=== PATIENT | female | born 1985 | race Caucasian/White ===

== ENCOUNTER 2017-10-27 10:41 | Day surgery (SDC) | payer OTHER ==
[2017-10-27] MEDS ORDERED: FENTAnyl 50 MCG/ML VIAL (13:06)
[2017-10-27] MEDS ORDERED: ROPIVACAINE 0.5 % 30 ML VIAL (13:10)
[2017-10-27] MEDS ORDERED: CEFAZOLIN 1 GM INJ (13:27)
[2017-10-27] MEDS ORDERED: ROCURONIUM 50 MG INJ (13:27)
[2017-10-27] MEDS ORDERED: LIDOCAINE 100 MG SYRINGE (13:27)
[2017-10-27] MEDS ORDERED: PROPOFOL 20 ML (13:27)
[2017-10-27] MEDS ORDERED: SUCCINYLCHOLINE CHLORIDE 100 MG/5 ML SYG IV (13:27)
[2017-10-27] MEDS ORDERED: SUGAMMADEX SODIUM 200 MG/2 ML VIAL IV (13:27)
[2017-10-27] MEDS: BUPIVACAINE 0.25%/EPI (SDV) 30 ML INJ INJ (13:35)
[2017-10-27] MEDS ORDERED: FENTAnyl 50 MCG/ML VIAL IV (14:00)
[2017-10-27] MEDS ORDERED: METOCLOPRAMIDE 10 MG INJ IV (14:00)
[2017-10-27] MEDS ORDERED: DIPHENHYDRAMINE 50 MG INJ IV (14:00)
[2017-10-27] MEDS ORDERED: HYDROmorphONE (0.2 MG/ML) 10ML SYG IV ×3 (14:00)
[2017-10-27] MEDS: MEPERIDINE 25 MG INJ IV (14:33)
[2017-10-27] MEDS: ONDANSETRON 4 MG INJ IV (14:39)
[2017-10-27] MEDS: FENTAnyl 50 MCG/ML VIAL IV ×2 (15:14→15:23)
[2017-10-27] MEDS: OXYCODONE/ACETAMINOPHEN (5/325) TAB PO (17:07)
[2017-10-27] MEDS ORDERED: OXYCODONE/ACETAMINOPHEN (10/325) TAB PO (17:30)
== END 2017-10-27 17:52 | disposition home or self-care (01) ==
LOC: SDS 10:41
DX: Z30.2 Encounter for sterilization (principal)
CPT/HCPCS: 58600; 84703; 88302